=== PATIENT | female | born 1965 | race Caucasian/White ===

== ENCOUNTER 2017-02-05 18:07 | Emergency (ER) | payer OTHER ==
[~2017-02-05] VITALS: Ht 160 cm; Wt 70.5 kg
[~2017-02-05 18:07] MED LIST: NAPR250T PO; OXYC1TAB24 PO; SULF1TAB7 PO
[2017-02-05 18:13] VITALS: BP 123/78; PULSE 96; RESP 16; O2SAT 98
[2017-02-05 18:47] LABS: BASOPHILS % (AUTO) 0.3 % (0-3); EOSINOPHILS % (AUTO) 0.6 % (0-5); MONOCYTES % (AUTO) 7.2 % (4-12); Mean Corpuscular Hemoglobin 28.4 pg (27.0-35.0); Mean Corpuscular Volume 85.6 fL (81-100); NEUTROPHILS % (AUTO) 77.5 % (40-74); Platelet Count 263 bil/L (150-400)
[2017-02-06] MEDS ORDERED: SULF1TAB35 PO (15:17)
[2017-02-09] MEDS ORDERED: HYDR-4003 PO (15:53)
== END 2017-02-05 19:27 | disposition left against medical advice (07) ==
LOC: SED 18:07
DX: L02.414 Cutaneous abscess of left upper limb (principal); Z53.29 Procedure and treatment not carried out because of patient's decision for other reasons

== ENCOUNTER 2017-02-06 13:26 | Emergency (ER) | payer OTHER ==
[~2017-02-06] VITALS: Ht 160 cm; Wt 70.4 kg
[2017-02-06 13:27] VITALS: BP 137/76; PULSE 88; RESP 16; O2SAT 96
--- NOTE | 2017-02-06 13:39 | ED.REPORT ---
HPI-General Illness Date of Service Feb 06, 2017 ED Provider: Gustavo Santa DO The patient is a 51 year old female with a history of IV drug use and multiple abscesses who presents to the ED with a right shoulder abscess onset 2 days ago. Pt last used heroine 3 days ago and was clean for a month prior to this episode. Nursing Notes Stated Complaint: RIGHT SHOULDER ABSCESS Chief Complaint: Skin Rash/Abscess Nursing Notes Reviewed: Yes Allergies: Coded Allergies: No Known Allergies (Verified , 02/05/17) Scheduled Sulfamethoxazole/Trimeth 800-160 mg (Bactrim DS) 1 Each Tablet 1 TABLET PO BID Sulfamethoxazole/Trimeth 800-160 mg (Bactrim DS 800-160 mg) 1 Each Tablet 1 TABLET PO BID Scheduled PRN Naproxen (Naproxen) 250 Mg Tablet 250 MG PO BID PRN PRN For Pain oxyCODONE-Acetaminophen 5-325 mg (oxyCODONE-Acetaminophen 5-325 mg) 1 Each Tablet 1 TAB PO Q4H PRN PRN For Pain General Time Seen by MD: 13:36 Chief Complaint Other (abscess) Hx Obtained From: Patient Arrived By: Walk-in Sudden in Onset?: Yes Onset Occurred: 2 days ago Context of Onset: Other (IV drug use) Symptom Duration: Since onset Location: : Shoulder right Quality: Painful Severity: Current: Moderate Associated with: Reports: Fever Pertinent Negative: Pt denies other symptoms Recent Healthcare: No recent doctor visit, No recent hospitalization Similar Sx Previous: Yes Past Medical History Past Medical History Notes: Pt seen in the ED 06/20/15 for abscess I&D, with recheck visit 06/22/15. Abscesses appeared to be healing well at her previous visit. Past Medical History Thyroid nodules Abscess I&D x2 06/20/15 Reports: Asthma Past Surgical History Knee surgery Reports: Reports: Tubal ligation Smoking History Current Every Day Smoker Social History Alcohol Use: Denies alcohol use Drug Use: IV drugs Occupation works at [employer], not at this time secondary to fire, lives with boyfriend Ambulatory Status Independent Review of Systems Full Review of Systems Constitutional: Reports: Chills, Fever GI: Denies: Diarrhea, Nausea, Vomiting Musculoskeletal: Reports: Extremity pain, Extremity swelling Skin: Reports Rash, Reports Swelling Neurologic: Denies: Numbness, Weakness Complete sys rev & neg: except as marked. Physical Exam Vital Signs Vital Signs Date Time Temp Pulse Resp B/P Pulse Ox O2 Delivery O2 Flow Rate FiO2 02/06/17 15:28 36.2 87 125/82 97 Room Air 02/06/17 15:00 105 16 164/110 98 Room Air 02/06/17 13:27 36.7 88 16 137/76 96 Room Air Initial VS: Reviewed General/Constitutional: Awake, Alert, Cooperative, Not toxic appearing Head / Eyes: Atraumatic, Normocephalic ENT: Atraumatic, Mucous membranes moist Upper Extremities Right Shoulder: Positive: Swelling present..., Tenderness present... Wrist / Hand: Atraumatic, Full range of motion, No deformity Lower Extremity / Pelvis / MS: Atraumatic, Full range of motion, No deformity Ankle / Foot: Atraumatic, Full range of motion, No deformity Abscess Notes: 7cm area of fluctuance on right shoulder Abscess #1 Location/Condition: Positive: Fluctuant, Location (right shoulder) Neurologic: Oriented X3, Speech NL Procedures Incision & Drainage Abscess Time: 14:38 Procedure Performed by: ED physician Consent / Setup / Site Prep: Consent from patient, Hand hygiene observed, Stand sterile technique, Standard surgical scrub, Sterile drapes applied Location of Abscess: 7cm by 7cm right shoulder Skin Preparation Agent: Hibiclens - Chlorhexidine Local Anesthesia: Lidocaine w epi 1% Incised Abscess with Scalpel: #11 Pus Drained: Large, Purulent discharge Irrigation: 200 cc Post-Procedure / Complications: Packing placed, Culture obtained, Gram stain ordered, Dressing applied, No complications, Condition improved, Tolerated procedure well, Patient stable Re-Eval/Medical Decision Med Decision/Clinical Course Focal cutaneous abscess, vital signs are stable patient does not appear septic. Will discharge on Bactrim. Time of Eval: 13:56 Re-Evaluation/Progress Note: Pt rechecked. Plan for incision and drainage. Time of Eval: 14:25 Re-Evaluation/Progress Note: Pt rechecked. Gave pt Xylocaine 1% Time of Eval: 14:38 Re-Evaluation/Progress Note: Abscess incision and drainage performed. Pt tolerated procedure well. Counseled Regarding: Diagnosis, Lab results, Need for follow-up, When/why to return to ED Discharge & Departure Primary Impression: Abscess of right shoulder Disposition: Home Discharge Condition All VS Reviewed: Yes Condition: Stable Patient Instructions: Abscess (ED) Additional Instructions: Thank you for entrusting us with your care today. I am sending you home with the antibiotic Bactrim, take this as directed. Keep the wound clean and dry. Have the wound rechecked in 48 hrs at the Emergency Room. Use Tylenol and Ibuprofen as needed for pain. Follow up with your primary care physician in the next week. Return to the Emergency Department if you experience any new or worsening symptoms including any signs of infection such as fever, chills, warmth, redness, increased pain, and discharge. I hope you feel better soon! Referrals: Antonia Robin (PCP) Scribe Attestation Portion of this note were transcribed by Elvira Castañeda. I, Dr. Santa, personally performed the history, physical exam, and medical decision-making: I reviewed and confirmed the accuracy for the information in the transcribed note. Signed by: lisa Lilly, 02/06/17 1700 copies to: Antonia Robin Timothy S DO Feb 06, 2017 13:39 Elvira Castañeda Feb 06, 2017 13:55
[2017-02-06] MEDS ORDERED: Lidocaine-Epi-Tetracaine Solution 3 mL Syringe TOPICAL ONE (14:00)
[2017-02-06] MEDS ORDERED: Lidocaine 1%/Epi 1:100,000 30 mL MDV SUBQ ONE (14:00)
[2017-02-06] MEDS ORDERED: Ketamine 100 mg/mL 5 mL Inj IM ONE (14:10)
[2017-02-06 15:00] VITALS: BP 164/110; PULSE 105; RESP 16; O2SAT 98
[2017-02-06] MEDS ORDERED: Trimethoprim-Sulfa 160 mg-800 mg Tablet PO ONE (15:15)
[2017-02-06] MEDS ORDERED: SULF1TAB35 PO (15:17)
[2017-02-06 15:28] VITALS: BP 125/82; PULSE 87; O2SAT 97
[2017-02-09] MEDS ORDERED: HYDR-4003 PO (15:53)
== END 2017-02-06 15:30 | disposition home or self-care (01) ==
LOC: SED 13:26
DX: L02.413 Cutaneous abscess of right upper limb (principal); J45.909 Unspecified asthma, uncomplicated; F17.200 Nicotine dependence, unspecified, uncomplicated

== ENCOUNTER → 2017-02-09 | Day surgery (SDC) | payer OTHER ==
[2017-02-09] VITALS (8 sets, daily range): BP systolic 105–137; BP diastolic 65–94; PULSE 81–95; RESP 14–21; O2SAT 95–98
[~2017-02-09] VITALS: Ht 160 cm; Wt 70.5 kg
[~2017-02-09] MED LIST changes: +Atropine 0.4 mg/mL Inj IVPUSH PRN; +Bupivacaine-MPF 0.5% W/EPI 30 mL Inj INFILTRATE ONE; +Dexamethasone 4 mg/mL Inj IVPUSH PRN; +Dexamethasone 4 mg/mL Inj ONE; +EPHEDrine Sulfate 50 mg/mL Inj IVPUSH PRN; +HYDR-4003 PO; +HYDROcodone-APAP 5-325 mg Tablet PO PRN; +HYDROmorphone 1 mg/mL Inj ONE; +Labetalol 5 mg/mL 4 mL Inj IV PRN; +Lactated Ringer's 1,000 ML IV ONE; +Lactated Ringer's 1,000 ML IV SCH; +Lactated Ringer's 500 ML IV PRN; +MetoCLOpramide 5 mg/mL 2 mL Inj IVPUSH PRN; +Ondansetron 2 mg/mL 2 mL Inj IVPUSH PRN; +Ondansetron 2 mg/mL 2 mL Inj ONE; +Phenylephrine 10,000 mCg/mL Inj IVPUSH PRN; +Phenylephrine 10,000 mCg/mL Inj ONE; +Propofol 10,000 mCg/mL 20 mL Inj ONE; +SULF1TAB35 PO; +fentaNYL-PF 50 mCg/mL 2 mL Inj IVPUSH PRN; +fentaNYL-PF 50 mCg/mL 2 mL Inj ONE; +hydrALAZINE 20 mg/mL Inj IVPUSH PRN
--- NOTE | 2017-02-09 12:53 | ED.REPORT ---
HPI-Rash / Abscess Date of Service Feb 09, 2017 ED Provider: Caitlin Laboy History of Present Illness: 51-year-old female here for abscess. She has a abscess on her left hip that she first noticed 2 days ago. It has been growing since. Yesterday she was nauseous and could not get out of bed she felt ill. Today the nausea comes in waves. She was here 2 days ago for an abscess on her right shoulder. She has been taking Bactrim. It was I and D in the emergency room and the packing is still in place. There is purulent drainage coming from the wound. It is minimally better since the I&D. She last injected 6 days ago in her right shoulder and her left hip. No known fever. States she had to be sedated to do the I&D 2 days ago. last ate last night. Nursing Notes Stated Complaint: ABSCESS ON LT HIP Chief Complaint: Skin Rash/Abscess Nursing Notes Reviewed: Yes Allergies: Coded Allergies: No Known Allergies (Verified , 02/09/17) Scheduled Sulfamethoxazole/Trimeth 800-160 mg (Bactrim DS 800-160 mg) 1 Each Tablet 1 TABLET PO BID Scheduled PRN Hydrocodone-Acetaminophen 5-325 mg (Hydrocodone-Acetaminophen 5-325 mg) 1 Each Tablet 1-2 TABLET PO Q4H PRN PRN For Moderate Pain General Time Seen by MD: 12:45 Chief Complaint Abscess Hx Obtained From: Patient Arrived By: Walk-in Onset Occurred: 2 days ago Symptom Duration: 2 days Location: : Lower extremity Quality: Painful Severity: Current: Severe Severity: Maximum: Severe Associated with: Reports Myalgia, Reports Nausea Pertinent Negative: Pt denies other symptoms Recent Healthcare: Recent doctor visit Similar Sx Previous: Yes Past Medical History Past Medical History Notes: Pt seen in the ED 06/20/15 for abscess I&D, with recheck visit 06/22/15. Abscesses appeared to be healing well at her previous visit. IM drug use Past Medical History Thyroid nodules Abscess I&D x2 06/20/15 Reports: Asthma Past Surgical History Knee surgery Reports: Reports: Tubal ligation Smoking History Current Every Day Smoker Social History Alcohol Use: Denies alcohol use Drug Use: IV drugs Occupation works at [employer], not at this time secondary to fire, lives with boyfriend Ambulatory Status Independent Review of Systems Constitutional: Reports: Fatigue, Denies: Chills, Fever Respiratory: Denies: Dyspnea on exertion, Non-productive cough Cardiovascular: Denies: Chest pain GI: Reports: Nausea, Denies: Abdominal pain, Vomiting Musculoskeletal: Reports: Extremity pain, Extremity swelling Skin: Reports Swelling Complete sys rev & neg: except as marked. Physical Exam Initial Vital Signs Vital Signs (First) Date Time Temp Pulse Resp B/P Pulse Ox O2 Delivery O2 Flow Rate FiO2 02/09/17 12:27 36.8 95 18 132/94 98 Room Air Initial VS: Reviewed, Vital signs normal Head / Eyes: Atraumatic, Normocephalic, PERRL ENT: Mucous membranes moist, Conjunctiva normal, No scleral icterus Neck: Supple, Non-tender, Full range of motion Respiratory: Breath sounds normal, Clear to auscultation, No respiratory distress Cardiovascular: Regular rate & rhythm, Heart sounds normal, Intact distal pulses Abdomen / GI: Soft, Non-tender, No guarding, No rebound, No distention Neurologic: Alert, Oriented, Nonfocal Psychiatric: Mood/affect normal, Behavior normal, Normal thought content General/Constitutional: Awake, Alert, Well appearing Rash / Lesion Notes: Large abscess present on left hip/gluteus. Exquisitely tender. Large head about 3-4cm, erythema and induration [id number]. Abscesses present on right shoulder. Packing is in place with purulent drainage noted. She states swelling is gone down but erythema has not. Moderately tender. Rash / Lesion Location: Positive: Buttocks, Shoulder R, Thigh L Interpretation & Diagnostics Lab Results Interpretation Result Diagram: 02/09/17 1310 02/09/17 1310 Test 02/09/17 13:10 White Blood Count 12.2th/mm3 (3.8-10.1) Red Blood Count 4.45mil/mm3 (3.90-5.20) Hemoglobin 12.5g/dL (12.0-15.6) Hematocrit 38.0% (35.0-46.0) Mean Corpuscular Volume 85.4fL (81-100) Mean Corpuscular Hemoglobin 28.1pg (27.0-35.0) Mean Corpuscular Hemoglobin Concent 32.9% (32.0-37.0) Red Cell Distribution Width 13.6% (12.3-15.4) Platelet Count 322bil/L (150-400) Neutrophils (%) (Auto) 70.6% (40-74) Lymphocytes (%) (Auto) 17.3% (14-46) Monocytes (%) (Auto) 10.0% (4-12) Eosinophils (%) (Auto) 1.1% (0-5) Basophils (%) (Auto) 0.7% (0-3) Sodium Level 134mEq/L (134-144) Potassium Level 5.0mEq/L (3.5-5.2) Chloride Level 96mEq/L (97-108) Carbon Dioxide Level 24mmol/L (18-29) Blood Urea Nitrogen 13mg/dL (6-24) Creatinine 0.82mg/dL (0.57-1.00) Estimat Glomerular Filtration Rate 106mL/min (>59) Glucose Level 101mg/dL (60-99) Lactic Acid Level 0.8mmol/L (0.4-2.0) Calcium Level 9.5mg/dL (8.5-10.1) Total Bilirubin 0.2mg/dL (0.0-1.2) Aspartate Amino Transf (AST/SGOT) 14U/L (0-50) Alanine Aminotransferase (ALT/SGPT) 10U/L (0-32) Alkaline Phosphatase 73U/L (25-150) Total Protein 7.7g/dL (6.4-8.4) Albumin 3.7g/dL (3.4-5.0) Procedures Procedure Notes: Packing removed from right shoulder. Approximately 2 feet of packing removed. Re-Eval/Medical Decision Med Decision/Clinical Course wbc trending down compared to [address] Mercado consulted and examined, bedside ultrasound of wound. Advised surgical consult and drainage in the surgical setting. Dr. Seals surgeon notified and will come see patient in the emergency room. 1434 pt to OR with staff for procedure Discharge & Departure Shift Change Sign-Out Response to Therapy: Unchanged Impression: Primary Impression: Abscess of left hip Additional Impression: Abscess of right shoulder Disposition: ADMITTED TO HOSPITAL Discharge Condition All VS Reviewed: Yes Condition: Stable Referrals: Antonia Robin (PCP) EDSupervising Provider for APC: Parker Mercado MD copies to: Parker Mercado MD; Jean Marie King MD, Linnea K ARNP Feb 09, 2017 12:53
[2017-02-09 13:28] LABS: Mean Corpuscular Hemoglobin 28.1 pg (27.0-35.0); Mean Corpuscular Volume 85.4 fL (81-100); NEUTROPHILS % (AUTO) 70.6 % (40-74); Platelet Count 322 bil/L (150-400)
[2017-02-09 13:30] LABS: BASOPHILS % (AUTO) 0.7 % (0-3); EOSINOPHILS % (AUTO) 1.1 % (0-5)
--- NOTE | 2017-02-09 14:35 | CONS ---
[address] [address] CONSULTATION REPORT PATIENT: ROJELIO JONES : 1965 MR#: [id number] ADMIT: 02/09/2017 JOB ID: [id number] DATE OF SERVICE: 02/09/2017 CONSULTATION REQUESTED BY: GOLDEN Chen REASON FOR CONSULTATION: The patient seen for decision to operate. HISTORY OF PRESENT ILLNESS: A 51-year-old female, who is a known heroin injector, was in emergency department three days ago for a right shoulder abscess and four days ago for a left shoulder abscess, and presents today with a left hip abscess. She claims to have been clean until just recently but "had a bad day." She also smokes cigarettes. She was discharged on Bactrim 1 DS b.i.d. ALLERGIES: None. SOCIAL SITUATION: Lives with her boyfriend. HABITS: Half a pack of cigarettes a day and obviously injects heroin. REVIEW OF SYSTEMS: Otherwise negative. REVIEW OF SYSTEMS: Last ate yesterday. Otherwise negative. Also states she does have thyroid nodules. PHYSICAL EXAMINATION: BMI 27.5, temperature 36.8, brachial blood pressure 132/94, pulse 95, respiratory rate 18, O2 sat room air 98%. HEENT: PERRLA. No scleral icterus. Neck: Trachea midline. No appreciable masses. I did not appreciate thyroid nodules. Lungs: Clear. Cardiac exam: Regular rhythm. No murmurs or gallops appreciated. Lymph nodes: No cervical or scalene adenopathy. Extremities: She has erythema and induration and a transverse incision over her right deltoid. There may be undrained pus. Left hip: Obvious large abscess with large area of surrounding cellulitis. Skin otherwise clear. Neurologic exam: Appropriate affect. No obvious cranial nerve deficits. She moves all extremities. Gait not tested. IMPRESSION: 1. Heroin addiction. 2. Multiple abscesses. She has had three different abscesses in the last four days. I am concerned that the right shoulder abscess is inadequately drained. The left hip abscess obviously needs to be drained and I think it is best suited to be done in the operating room based on size. I discussed options with the patient. I have recommended proceeding with incision and drainage of left hip abscess and exploration of the right deltoid abscess. She agrees to proceed. Both sites were marked and informed consent obtained.
--- NOTE | 2017-02-09 14:54 | PCM.HPANE ---
Patient Data Date of Service: Feb 09, 2017 Surgeon Admitting Provider: Attending Provider:Jean Marie King MD Primary Care Physician:Antonia Robin Other Provider: Reason for Visit Left Hip Abscess Ht/WT & BMI Height (Feet): 5 Height (Inches): 3 Weight (Kilograms): 70.45 Body Mass Index Allergies Coded Allergies: No Known Allergies (Verified , 02/09/17) Past Anesthesia History Anesthesia History: Denies:: Anesthesia Reactions, Difficult Intubation, Malignant Hyperthermia Diabetes History Hx Diabetes?: No Medications Hypertension Medication: No Active Scripts Sulfamethoxazole/Trimeth 800-160 mg (Bactrim DS 800-160 mg)1 Each Tablet1 Tablet PO BID #20 TABLET Prov:Gustavo Santa DO 02/06/17 Discontinued Reported Medications Naproxen 250 Mg [id number] Mg PO BID PRN For Pain Ref 0 08/27/15 Discontinued Scripts Sulfamethoxazole/Trimeth 800-160 mg (Bactrim DS)1 Each Tablet1 Tablet PO BID # 20 TABLET Ref 0 Prov:Chapo Shepard DO 12/27/15 oxyCODONE-Acetaminophen 5-325 mg 1 Each Tablet1 Tab PO Q4H PRN For Pain #30 TABLET Ref 0 Prov:Ezequiel Martinez MD 08/27/15 History History of ENT Problems?: No HEENT History: Denies:: Abnormal Airway Denture Type: None Teeth Condition: Tooth Decay Missing Teeth Hx of Heart Problems?: No Cardiovascular History: Denies:: Congestive Heart Failure Hypertension Hx of Respiratory Problem?: No Respiratory History: Denies:: Asthma Tuberculosis Hx Neurologic Problems?: No Hx of GI Problems?: No Hx of Problems?: No Female Hx: Denies:: Currently Hx Musculoskeletal Problems?: No Hx of Psycho/Social Problems?: Yes Psycho Social History: Denies:: Suicide Attempt Other History/Comment IVDU Hx Surgeries?: Yes (LEFT KNEE, BILATERAL HANDS) History Blood Transfusions: Positive for:: Accept Blood Products? Denies:: Blood Transfusions Hx Diabetes: No Hx Alcohol Use: NoHx Substance Use: Yes ( HEROIN) Smoking Status: Current Every Day Smoker Have You Smoked inLast 12 mo: Yes Stop/Bang Treated for Sleep Apnea?: No Do You Have a CPAP Machine?: No S-Snoring: Do You Snore Loudly: No T-Tired: feel tired, fatigued: No O-Obsered: Observed not breath: No P-Blood Pressure: treated: No B- Body Mass Index > 35 kg/m2: No A- Age over 50: No N- Neck Large Circumference: No G- Gender Male: No ARGENIS Total Score: 0 ARGENIS Risk Assessment: Low Risk, <3 Yes Risk Assessment Category Category 1A: Patient has history of documented sleep apnea, and HAS NOT received any narcotic, sedative or anesthesia administration during this stay. Category 1B: Patient has history of documented sleep apnea, and HAS received any narcotic , sedative or anesthesia administration during this stay Category 2: Patient has SUSPECTED Obstructive Sleep Apnea, and HAS received any narcotic , sedative or anesthesia administration during this stay. Category 3: Patient has SUSPECTED Obstructive Sleep Apnea and HAS NOT received narcotic, sedative or anesthesia administration during this stay. Category 4: Outpatient in Procedural Areas with known sleep apnea or who screen positive for High Risk via the STOP/BANG questionnaire. Exam Exam Vital Signs Vital Signs Date Time Temp Pulse Resp B/P Pulse Ox O2 Delivery O2 Flow Rate FiO2 02/09/17 14:20 36.8 85 16 105/68 98 Room Air 02/09/17 12:27 36.8 95 18 132/94 98 Room Air General Appearance: Alert, Oriented X3, Cooperative, No Acute Distress HEENT/AIRWAY: MP 3, Neck Movement (normal), Mouth Opening (small) Lungs: Clear to Auscultation, Normal Air Movement Heart: Exam Unremarkable, Regular Rate/Rhythm, No Murmurs/Rubs/Gallops Meds/Labs/Diagnostics Labs Test 02/09/17 13:10 White Blood Count 12.2th/mm3 (3.8-10.1) Red Blood Count 4.45mil/mm3 (3.90-5.20) Hemoglobin 12.5g/dL (12.0-15.6) Hematocrit 38.0% (35.0-46.0) Mean Corpuscular Volume 85.4fL (81-100) Mean Corpuscular Hemoglobin 28.1pg (27.0-35.0) Mean Corpuscular Hemoglobin Concent 32.9% (32.0-37.0) Red Cell Distribution Width 13.6% (12.3-15.4) Platelet Count 322bil/L (150-400) Neutrophils (%) (Auto) 70.6% (40-74) Lymphocytes (%) (Auto) 17.3% (14-46) Monocytes (%) (Auto) 10.0% (4-12) Eosinophils (%) (Auto) 1.1% (0-5) Basophils (%) (Auto) 0.7% (0-3) Sodium Level 134mEq/L (134-144) Potassium Level 5.0mEq/L (3.5-5.2) Chloride Level 96mEq/L (97-108) Carbon Dioxide Level 24mmol/L (18-29) Blood Urea Nitrogen 13mg/dL (6-24) Creatinine 0.82mg/dL (0.57-1.00) Estimat Glomerular Filtration Rate 106mL/min (>59) Glucose Level 101mg/dL (60-99) Lactic Acid Level 0.8mmol/L (0.4-2.0) Calcium Level 9.5mg/dL (8.5-10.1) Total Bilirubin 0.2mg/dL (0.0-1.2) Aspartate Amino Transf (AST/SGOT) 14U/L (0-50) Alanine Aminotransferase (ALT/SGPT) 10U/L (0-32) Alkaline Phosphatase 73U/L (25-150) Total Protein 7.7g/dL (6.4-8.4) Albumin 3.7g/dL (3.4-5.0) Plan Impression Patient chart reviewed, patient interviewed and anesthestic plan with risks, benefits, and alternatives discussed, and informed consent obtained. NPO per Anesth. Guidelines: Yes ASA Physical Status: ASA2 Mod Systemic Disease Anesthetic Plan: GA Bene/Risks/Altern/Consents: Yes HP Complete Prior to Induction: Yes Miki Potts MD Feb 09, 2017 14:40
--- NOTE | 2017-02-09 15:41 | PCM.ANEP1 ---
Post Anesthesia PACU Phase 1 Assessment Date of Service: Feb 09, 2017 Vital Signs 36.9 118/77 82 19 96% RA Anesthetic Administered: GA Level of Alertness: Awake, talking GREENBERG's with Equal Strength: Yes Pain: Yes Nausea or Vomiting: No CV Function & Hydration Stable: Yes Airway Device: Oxygen Delivery: Room Air Lungs: Clear to Auscultation, Normal Air Movement PACU Phase 2 Assessment Complications: No Follow up Care: N/A Patient Instructions Provided: Yes Miki Potts MD Feb 09, 2017 15:41
[2017-02-09] MEDS: HYDROmorphone 1 mg/mL Inj IVPUSH PRN ×2 (15:56→16:07)
--- NOTE | 2017-02-09 15:58 | PCM.DISURG ---
Surgical Discharge Instruction Date of Service Feb 09, 2017 Dates of Hospitalization Date of Hospital Admission Feb 09, 2017 Providers Admitting Physician: Primary Care Physician: Antonia Robin Attending Physician: Jean Marie King MD Discharge Diagnosis Discharge Diagnosis Multiple abscesses Post Operative diagnosis Same Diet Discharge Diet: No restrictions Activity Discharge Activity-General: Try not to overdue, Balance rest and activity, No driving while taking narcotic Dressing and Incisional Care Dressing Care: Keep dressing clean, dry & intact, Remove outer dressing after 24 hrs (Remove packing as well.) Hygiene: May shower after (24. Remove dressings first.), DO NOT soak incision under water, NO bathtub, hot tub or whirlpool Follow Up Plan Mid-level Provider (F9): Myles Oropeza PA-C Follow-up appointment: Weeks (2) Call your provider for: Fever, Chills, Discharge @ incision, pus discharge Rosalino Robin PA-C Feb 09, 2017 15:58
--- NOTE | 2017-02-09 16:38 | OP ---
[address] [address] OPERATIVE REPORT PATIENT: ROJELIO JONES : 1965 MR#: [id number] ADMIT: 02/09/2017 JOB ID: [id number] DATE OF SURGERY: 02/09/2017 PREOPERATIVE DIAGNOSIS(ES): 1. Left hip abscess. 2. Right deltoid abscess. 3. Heroin addiction and injection. POSTOPERATIVE DIAGNOSIS(ES): OPERATION: 1. Incision and drainage, large left hip abscess, complicated. 2. Incision and drainage, right deltoid abscess, complicated. SURGEON: Jean Marie King MD. INDICATIONS: A 51-year-old heroin abuser, who had a left shoulder abscess incised and drained in the emergency department February 05, 2017. Then, on February 06, had a right shoulder abscess incised and drained in the emergency department, and then to presented today with a left hip abscess. It was large and felt best drained in the operating room. She claims to have not been using heroin for a year. On physical examination, she had a large left hip abscess, and on the right, still had significant cellulitis and some purulence coming out of her right deltoid abscess, and so after discussing options with the patient, it was elected to proceed with re-exploration of the right deltoid abscess and then incision and drainage of the left hip abscess. FINDINGS: There was some undrained pus in the right deltoid abscess which needed better drainage and I lengthened the incision. The left hip abscess had an approximate 7 x 5 x 5 cm abscess space. There was no evidence of necrotizing fasciitis in either site. The left hip abscess was cultured. PROCEDURE: At the beginning and end of the operation, the SCOAP checklist was completed. An LMA anesthetic was induced by Dr. Miki Potts. Using Betadine, the right deltoid abscess was prepped and it was explored with a Nanci clamp. There is some undrained pus that I drained and so I extended the incision superiorly. The wound was then irrigated, then packed with saline- moistened Kerlix. It was covered by 4x4's and tape. She was then repositioned and her left hip abscess prepped with Betadine. She was given local anesthesia with 0.5% plain bupivacaine and an oblique incision was made, but prior to doing so, the abscess was aspirated and the aspirate sent for culture and sensitivity and Gram stain. The abscess was completely drained. It was irrigated with saline. It was then packed with saline-moistened Kerlix covered by Kerlix and an ABD and then taped. ESTIMATED BLOOD LOSS: 10 cc. No apparent complications. The final sponge, needle and instrument counts were announced as correct, and she was returned to the recovery room in stable condition.
== END | disposition home or self-care (01) ==
LOC: SED 12:17 → SAS 14:16
PROVIDERS: ATTEND Surgery
DX: L02.413 Cutaneous abscess of right upper limb (principal); L02.416 Cutaneous abscess of left lower limb; F11.20 Opioid dependence, uncomplicated; J45.909 Unspecified asthma, uncomplicated; E04.2 Nontoxic multinodular goiter; F17.210 Nicotine dependence, cigarettes, uncomplicated
CPT/HCPCS: 10061; 36415; 80053; 83605; 85025; 87040; 87070; 87075; 87076; 87077; 87186; 87205; 99285; J0690; J1100; J1170; J1885; J2175; J2250; J2370; J2405; J3010; J7120

== ENCOUNTER 2017-03-04 19:05 | Emergency (ER) | payer OTHER ==
[~2017-03-04] VITALS: Ht 160 cm; Wt 70.5 kg
[~2017-03-04 19:05] MED LIST changes: -Atropine 0.4 mg/mL Inj IVPUSH PRN; -Bupivacaine-MPF 0.5% W/EPI 30 mL Inj INFILTRATE ONE; -Dexamethasone 4 mg/mL Inj IVPUSH PRN; -Dexamethasone 4 mg/mL Inj ONE; -EPHEDrine Sulfate 50 mg/mL Inj IVPUSH PRN; -HYDROcodone-APAP 5-325 mg Tablet PO PRN; -HYDROmorphone 1 mg/mL Inj ONE; -Labetalol 5 mg/mL 4 mL Inj IV PRN; -Lactated Ringer's 1,000 ML IV ONE; -Lactated Ringer's 1,000 ML IV SCH; -Lactated Ringer's 500 ML IV PRN; -MetoCLOpramide 5 mg/mL 2 mL Inj IVPUSH PRN; -NAPR250T PO; -OXYC1TAB24 PO; -Ondansetron 2 mg/mL 2 mL Inj IVPUSH PRN; -Ondansetron 2 mg/mL 2 mL Inj ONE; -Phenylephrine 10,000 mCg/mL Inj IVPUSH PRN; -Phenylephrine 10,000 mCg/mL Inj ONE; -Propofol 10,000 mCg/mL 20 mL Inj ONE; -SULF1TAB7 PO; -fentaNYL-PF 50 mCg/mL 2 mL Inj IVPUSH PRN; -fentaNYL-PF 50 mCg/mL 2 mL Inj ONE; -hydrALAZINE 20 mg/mL Inj IVPUSH PRN
[2017-03-04 19:15] VITALS: BP 131/87; PULSE 100; RESP 18; O2SAT 99
--- NOTE | 2017-03-04 21:13 | ED.REPORT ---
HPI-Rash / Abscess Date of Service Mar 04, 2017 ED Provider: Chris Umaña MD The pt is a 51 y/o female with a hx of IV heroin use and multiple abscesses who presents to the ED complaining of a painful abscess on the left upper arm, onset 2 days ago. The pain from her abscess radiates down to her elbow and up to the shoulder. She also reports a smaller abscess on the right buttock. She last used heroin 5 days ago. She is enrolled in a methadone program. Nursing Notes Stated Complaint: LEFT ARM ABSCESS Chief Complaint: Skin Rash/Abscess Nursing Notes Reviewed: Yes Allergies: Coded Allergies: No Known Allergies (Verified , 02/09/17) Scheduled Clindamycin (Clindamycin) 300 Mg Capsule 300 MG PO TID Sulfamethoxazole/Trimeth 800-160 mg (Bactrim DS 800-160 mg) 1 Each Tablet 1 TABLET PO BID Scheduled PRN Hydrocodone-Acetaminophen 5-325 mg (Hydrocodone-Acetaminophen 5-325 mg) 1 Each Tablet 1-2 TABLET PO Q4H PRN PRN For Moderate Pain General Time Seen by MD: 21:07 Chief Complaint Abscess Hx Obtained From: Patient Arrived By: Walk-in Onset Occurred: 2 days ago Symptom Duration: Since onset Location: : Other Quality: Painful Severity: Current: Severe Severity: Maximum: Severe Recent Healthcare: Recent doctor visit Similar Sx Previous: Yes Past Medical History Past Medical History Thyroid nodules Multiple abscess I&D Reports: Asthma Past Surgical History Knee surgery Reports: Reports: Tubal ligation Smoking History Current Every Day Smoker Social History Alcohol Use: Denies alcohol use Drug Use: IV drugs Occupation works at [email or web address], not at this time secondary to fire, lives with boyfriend Ambulatory Status Independent Review of Systems Reports: painful abscess on the left upper arm Reports: abscess on the right buttock Musculoskeletal: Reports: Joint pain (left shoulder and left elbow) Complete sys rev & neg: except as marked. Physical Exam Initial Vital Signs Vital Signs (First) Date Time Temp Pulse Resp B/P Pulse Ox O2 Delivery O2 Flow Rate FiO2 03/04/17 19:15 37.7 100 18 131/87 99 03/05/17 04:14 Room Air Initial VS: Reviewed, Vital signs normal Head / Eyes: Atraumatic, Normocephalic Neck: Supple, Non-tender, Full range of motion Respiratory: Breath sounds normal, Clear to auscultation, No respiratory distress Cardiovascular: Regular rate & rhythm, Heart sounds normal, Intact distal pulses Abdomen / GI: Soft, Non-tender, No guarding, No rebound, No distention Extremities: Vascular intact, Neuro intact, No swelling, No tenderness Neurologic: Alert, Oriented, Nonfocal Psychiatric: Mood/affect normal, Behavior normal, Normal thought content General/Constitutional: Awake, Alert, Cooperative Distress / Hydration: Positive: Distress mild Skin: Atraumatic, Color NL Indurates and erythematous area with obvious fluid collection. Upper Extremity / MS: Atraumatic, Full range of motion, No deformity, Neurologic intact, Vascular intact 8x12 cm abscess with surrounding erythema on the left upper arm. Interpretation & Diagnostics CT left upper extremity Left arm abscess centered in the subcutaneous fat at the level of the midhumerus laterally. Signed by Dr. Ilya Stein 03/04/17 23:47 Lab Results Interpretation Result Diagram: 03/04/17 2205 03/04/17 220 Test 03/04/17 22:05 03/04/17 22:45 03/04/17 23:42 White Blood Count 13.7th/mm3 (3.8-10.1) Red Blood Count 4.28mil/mm3 (3.90-5.20) Hemoglobin 12.1g/dL (12.0-15.6) Hematocrit 36.3% (35.0-46.0) Mean Corpuscular Volume 84.8fL (81-100) Mean Corpuscular Hemoglobin 28.3pg (27.0-35.0) Mean Corpuscular Hemoglobin Concent 33.3% (32.0-37.0) Red Cell Distribution Width 14.0% (12.3-15.4) Platelet Count 272bil/L (150-400) Neutrophils (%) (Auto) 78.3% (40-74) Lymphocytes (%) (Auto) 14.2% (14-46) Monocytes (%) (Auto) 6.4% (4-12) Eosinophils (%) (Auto) 0.7% (0-5) Basophils (%) (Auto) 0.2% (0-3) Sodium Level 133mEq/L (134-144) Potassium Level 4.3mEq/L (3.5-5.2) Chloride Level 93mEq/L (97-108) Carbon Dioxide Level 24mmol/L (18-29) Blood Urea Nitrogen 11mg/dL (6-24) Creatinine 0.70mg/dL (0.57-1.00) Estimat Glomerular Filtration Rate 127mL/min (>59) Glucose Level 112mg/dL (60-99) Lactic Acid Level 0.6mmol/L (0.4-2.0) Calcium Level 9.6mg/dL (8.5-10.1) Magnesium Level 2.0mg/dL (1.6-2.6) Total Bilirubin 0.2mg/dL (0.0-1.2) Aspartate Amino Transf (AST/SGOT) 15U/L (0-50) Alanine Aminotransferase (ALT/SGPT) 9U/L (0-32) Alkaline Phosphatase 79U/L (25-150) Troponin T < 0.010ug/L (0.0-0.011) Total Protein 8.1g/dL (6.4-8.4) Albumin 4.3g/dL (3.4-5.0) Hold Urine Received (Received) HIV (1&2) Antibody Rapid Negative (Negative) Lab Results Interpretation: Elevated white blood count X-Ray Chest Interpretation Chest Xray Interpretation: No acute findings. View: Portable, 1 view Interpretation / Wet Read by: Wet read ED physician Procedures Incision & Drainage Abscess Time: 02:35 Procedure Performed by: ED physician Consent / Setup / Site Prep: Informed consent provided, Consent from patient , Time-out performed, Hand hygiene observed, Stand sterile technique, Standard surgical scrub, Sterile drapes applied Location of Abscess: Left upper arm Skin Preparation Agent: Shurclens, Normal saline Local Anesthesia: Lidocaine w epi 1% Procedural Sedation/Analgesia: Sedation: Etomidate Incised Abscess with Scalpel: #11 Pus Drained: Large, Purulent discharge, Bloody Irrigation: Copious Post-Procedure / Complications: Packing placed, Dressing applied, No complications, Condition improved, Tolerated procedure well, Patient stable Proced Mod Sedation/Analgesia Time: 02:32 Procedure Performed by: ED physician Sedation Time: 10 - 15 min Consent / Setup: Informed consent provided, Consent from patient, Time-out performed, Hand hygiene observed, Stand sterile technique, Position supine Indication: Other (I&D) Preparation: air sampling and monitoring applied, Pulse oximeter applied, Constant attendance, IV access established, Eval last meal time, Supplemental oxygen, Procedure explained, Suction available, End tidal CO2 mon applied VS Prior to Procedure: All vital signs normal Mallampati: Class & Anatomy: 2 top tonsil/uvula/palate Airway Exam: Normal facial anatomy, Normal neck anatomy, Normal anatomy CVS/Resp Exam: Normal breath sounds Sedation: Sedation: Etomidate ASA Classification: 1 normal healthy patient Response During Procedure: Handled secretions adeq, Maintained airway well, Oxygenation stable, Sedation appropriate, Vital signs stable Complications During/After: None (however, etomidate did not appear to be fully effective and she had a prominent tremor/myoclonic jerking during the sedation.) Reversal: None required Mental Status After Procedure: Alert, Oriented X3, Response to verbal stim, Response to painful stim, Not responsive, Normal per age, At patient's baseline Post-Procedure: Alert prior to discharge, Pt rtn pre-proc baseline, Vital signs normal Attestation: I performed procedure, I performed sedation Re-Eval/Medical Decision Med Decision/Clinical Course 51-year-old female who is on a methadone program but continues to inject heroin intramuscularly. She has a small tender area on her buttocks and a large abscess in her left upper arm. CT scan showed no evidence of deep extension, necrotizing fasciitis, or osteomyelitis. Her white blood count was elevated but she showed no evidence of overt sepsis. She had very mild tachycardia but no hypotension. She was hydrated and given IV antibiotics. The abscess was drained under etomidate sedation. She did not tolerate the sedation very well, it was not fully effective and she had considerable tremor/myoclonic jerking with it. I would recommend the future using a different sedating agent. She is being discharged home with clindamycin. She will follow up in 24 hours for wound recheck. Source of Hx: Old records Re-Evaluation/Progress : Time of Eval: 02:16 Re-Evaluation/Progress Note: Rechecked pt. Discussed lab results, imaging results, diagnosis and plan to discharge after I&D. Pt understands and agrees with the plan. F/U instruction and RTER warning given. All questions addressed. Counseled Regarding: Diagnosis, Need for follow-up, When/why to return to ED Discharge & Departure Impression: Primary Impression: Abscess of right upper extremity Disposition: Home Discharge Condition All VS Reviewed: Yes Condition: Stable Patient Instructions: Abscess Incision and Drainage (DC) Additional Instructions: Return to the emergency room this early Wednesday morning for recheck and repack. Clindamycin 300 mg 4 times a day for 10 days. Warm compresses. Referrals: Antonia Robin (PCP) Scribe Attestation Portions of this note were transcribed by Darby Salamanca. I,, personally performed the history,physical exam and medical decision-making;I reviewed and confirmed the accuracy of the information in the transcribed note. Signed by Sohail Barron. 03/04/17 copies to: Antonia Robin Howard L MD Mar 04, 2017 21:13 Darby Salamanca Mar 04, 2017 21:20
[2017-03-04] MEDS ORDERED: 0.9% Sodium Chloride 1,000 ML IV ONE (21:21)
[2017-03-04] MEDS ORDERED: Meropenem Inj 1,000 MG in 0.9% Sodium Chloride 100 ML IV ONE (21:25)
[2017-03-04] MEDS ORDERED: Clindamycin Inj 900 MG in IV Premix 1 EACH IV ONE (21:25)
[2017-03-04] MEDS ORDERED: Vancomycin Dose per Pharmacist XX ONE (21:25)
[2017-03-04] MEDS ORDERED: Vancomycin Inj 1,250 MG in 0.9% Sodium Chloride 250 ML IV ONE (21:45)
[2017-03-04 22:16] LABS: BASOPHILS % (AUTO) 0.2 % (0-3); EOSINOPHILS % (AUTO) 0.7 % (0-5); MONOCYTES % (AUTO) 6.4 % (4-12); Mean Corpuscular Hemoglobin 28.3 pg (27.0-35.0); Mean Corpuscular Volume 84.8 fL (81-100); NEUTROPHILS % (AUTO) 78.3 % (40-74); Platelet Count 272 bil/L (150-400)
[2017-03-04 22:41] LABS: TROPONIN T < 0.010 ug/L (0.0-0.011)
[2017-03-04] MEDS ORDERED: Ondansetron 2 mg/mL 2 mL Inj IVPUSH PRN (22:45)
[2017-03-04] MEDS: HYDROmorphone 1 mg/mL Inj IVPUSH PRN (23:00)
[2017-03-05] MEDS: HYDROmorphone 1 mg/mL Inj IVPUSH PRN (01:53)
[2017-03-05] MEDS ORDERED: HYDROmorphone 1 mg/mL Inj IVPUSH PRN (02:45)
[2017-03-05] MEDS ORDERED: CLIN-78 PO (03:33)
[2017-03-05 04:14] VITALS: BP 127/72; PULSE 100; RESP 14; O2SAT 98
--- NOTE | 2017-03-05 07:35 | DRSVH ---
PROCEDURE: X-RAY CHEST ONE VIEW, PORTABLE ([id number]) INDICATIONS: Abscess, septic TECHNIQUE: One view of the chest was acquired. COMPARISON: [facility], , CHEST 1VW (PORTABLE), 07/11/2007, 12:01. FINDINGS: Surgical changes and devices: None. Lungs and pleura: No pleural effusions or pneumothorax. Lungs are clear. Mediastinum: Mediastinal contours appear normal. Heart size is normal. Bones and chest wall: No suspicious bony lesions. Overlying soft tissues appear unremarkable. IMPRESSION: No radiographic evidence of acute cardiopulmonary pathology. Dictated by: Bridger Charlton M.D. on 03/05/2017 at 7:32 Approved by: Bridger Charlton M.D. on 03/05/2017 at 7:33
--- NOTE | 2017-03-05 09:24 | DRSVH ---
PROCEDURE: CT UPPER EXTREMITY LT W CON INDICATIONS: 51 year-old woman with left arm pain, swelling and redness. Suspicious for abscess. TECHNIQUE: After the administration of intravenous contrast, 3 mm axial sections acquired of the left upper arm, with coronal and sagittal reformats. For radiation dose reduction, the following was used: automat ed exposure control, adjustment of mA and/or kV according to patient size. COMPARISON: None. FINDINGS: Image quality: Excellent. Bones: No fracture or dislocation. No bony erosion or periosteal direction. Soft tissues: There is a complex fluid collection with peripheral enhancement within the subcutaneous tissue of the lateral aspect of the mid left upper arm, consistent with an abscess. The abscess winnie ures 3.9 cm AP x 2.9 cm transverse x 7.6 cm longitudinal. There is skin thickening and inflammatory stranding over the collection consists with cellulitis. IMPRESSION: 1. A 3.9 x 2.9 x 7.6 cm subcutaneous abscess in the lateral aspect of the mid left upper arm. 2. Skin thickening in the lateral aspect of the left are prominent consistent with cellulitis. No significant discrepancy with the marine engineering professor radiology preliminary report. Dictated by: Iraida Rocha M.D. on 03/05/2017 at 9:15 Approved by: Iraida Rocha M.D. on 03/05/2017 at 9:22
== END 2017-03-05 03:50 | disposition home or self-care (01) ==
LOC: SED 19:05
DX: L02.414 Cutaneous abscess of left upper limb (principal); L02.31 Cutaneous abscess of buttock; J45.909 Unspecified asthma, uncomplicated; F17.200 Nicotine dependence, unspecified, uncomplicated; Z98.890 Other specified postprocedural states
CPT/HCPCS: 10061; 36415; 71010; 73201; 80053; 83605; 83735; 84484; 85025; 87040; 87340; 94770; 94799; 96365; 96366; 96367; 96375; 96376; 99152; 99285; G0432; G0433; G0472; J1170; J2185; J2405; J3370; J3490; J7030; J7050; Q9967

== ENCOUNTER 2017-03-07 05:52 | Emergency (ER) | payer OTHER ==
[~2017-03-07] VITALS: Ht 160 cm; Wt 70.5 kg
[~2017-03-07 05:52] MED LIST changes: +CLIN-78 PO
[2017-03-07 05:59] VITALS: BP 110/68; PULSE 92; RESP 18; O2SAT 98
--- NOTE | 2017-03-07 06:13 | ED.REPORT ---
HPI-Rash / Abscess Date of Service Mar 07, 2017 ED Provider: Zan Flores MD The pt is a 51 y/o female w/ a hx of IV drug use presenting to the ED complaining of an abscess on her R buttock. She was also seen here in the ED 3 days ago for an I+D of an abscess to her L arm which she would like to be repacked. The pt last had water to drink earlier this morning. Nursing Notes Stated Complaint: ABSCESS RT ARM/BUTT Chief Complaint: R buttock abscess Nursing Notes Reviewed: Yes ([employer] not reconciled) Allergies: Coded Allergies: No Known Allergies (Verified , 02/09/17) Scheduled Clindamycin (Clindamycin) 300 Mg Capsule 300 MG PO TID Lactobacillus Acidophilus (Probiotic) 1 Each Capsule 1 EACH PO DAILY Sulfamethoxazole/Trimeth 800-160 mg (Bactrim DS 800-160 mg) 1 Each Tablet 1 TABLET PO BID Scheduled PRN Hydrocodone-Acetaminophen 5-325 mg (Hydrocodone-Acetaminophen 5-325 mg) 1 Each Tablet 1-2 TABLET PO Q4H PRN PRN For Moderate Pain General Time Seen by MD: 06:07 Chief Complaint Abscess (R buttock ) Hx Obtained From: Patient Arrived By: Walk-in Symptom Duration: Since onset Recent Healthcare: No recent hospitalization, Recent doctor visit Similar Sx Previous: Yes Past Medical History Past Medical History Thyroid nodules Multiple abscess I&D Reports: Asthma Past Surgical History Knee surgery Reports: Reports: Tubal ligation Smoking History Current Every Day Smoker Social History Alcohol Use: Denies alcohol use Drug Use: IV drugs Occupation works at [employer], not at this time secondary to fire, lives with boyfriend Ambulatory Status Independent Review of Systems R buttock abscess; L arm abscess that was drained 3 days ago; Complete sys rev & neg: except as marked. Physical Exam Initial Vital Signs Vital Signs (First) Date Time Temp Pulse Resp B/P Pulse Ox O2 Delivery O2 Flow Rate FiO2 03/07/17 05:59 36.7 92 18 110/68 98 Room Air Initial VS: Reviewed, Vital signs normal Head / Eyes: Atraumatic, Normocephalic, PERRL ENT: Mucous membranes moist, Conjunctiva normal, No scleral icterus Neck: Supple, Non-tender, Full range of motion Respiratory: Breath sounds normal, Clear to auscultation, No respiratory distress Cardiovascular: Regular rate & rhythm, Heart sounds normal, Intact distal pulses Neurologic: Alert, Oriented, Nonfocal Psychiatric: Mood/affect normal, Behavior normal, Normal thought content General/Constitutional: Awake, Alert Behavior: Positive: Anxious Moderate pain Skin: Warm, Dry Large, roughly 10 cm, abscess on the R buttock w/ surrounding cellulitis Interpretation & Diagnostics Interpretation & Diagnostics: Blood Cultures no growth to date Proced Mod Sedation/Analgesia Post-Procedure: Vital signs normal Procedures Incision & Drainage Abscess I & D Abscess: Dressing change and packing removal of the previously drained left arm abscess was also performed while the patient was sedated Procedure Performed by: ED physician Consent / Setup / Site Prep: Informed consent provided Location of Abscess: Right buttock Skin Preparation Agent: Hibiclens - Chlorhexidine Local Anesthesia: Bupivacaine 0.5% Procedural Sedation/Analgesia: Sedation: Ketamine (IM) Pus Drained: Large, Purulent discharge Irrigation: Yes, Copious, 250 cc Post-Procedure / Complications: Packing placed, Drain placed, Dressing applied, No complications, Condition improved, Tolerated procedure well, Patient stable Proced Mod Sedation/Analgesia Time: 07:00 Procedure Performed by: ED physician Consent / Setup: Informed consent provided, Consent from patient, Time-out performed, Hand hygiene observed, Stand sterile technique, Head of bed at 30-60 deg Indication: Other (Abscess I&D) Preparation: Pulse oximeter applied, Constant attendance, Eval last meal time, Supplemental oxygen, Procedure explained, Suction available, End tidal CO2 mon applied VS Prior to Procedure: All vital signs normal Mallampati: Class & Anatomy: 2 top tonsil/uvula/palate Airway Exam: Normal facial anatomy CVS/Resp Exam: Normal breath sounds, Normal heart sounds Neuro Exam: Alert Sedation: Sedation: Other, Analgesia: Other ASA Classification: 2 mild systemic disease Response During Procedure: Handled secretions adeq, Maintained airway well, Oxygenation stable, Sedation appropriate, Vital signs stable Complications During/After: None Reversal: None required Mental Status After Procedure: At patient's baseline Post-Procedure: Alert prior to discharge Attestation: I performed procedure, I performed sedation Re-Eval/Medical Decision Med Decision/Clinical Course This is a 51-year-old female returns to the emergency department requesting an abscess edge of the right buttock. Patient intramuscular muscles heroin, has just seen and is status post drainage of an abscess to the left arm, and is on clindamycin. She had cellulitis of the buttock but not anything that was clearly minimal incision at the drainage at the time she was seen, but reports is now matured. She denies fevers or systemic symptoms. On exam she is an uncomfortable-appearing 51-year-old black female, but does not appear toxic or acutely ill. She does have a large abscess and surrounding cellulitis of the right buttock. She still has some residual cellulitis to the left arm where the previous incision was performed, but a normal upper chain fluctuance. Packing from that abscess and I&D was removed. I reviewed the last records indicate that etomidate was considered suboptimal for procedural sedation for her, so I elected to use ketamine. The patient received pretreatment with ondansetron, and I am dose of ketamine was given- with excellent sedation and analgesia. The right buttock abscess was anesthetized with additional bupivacaine with epinephrine, incised and drained, and a large amount of purulent material removed. The abscess cavity was irrigated, then packed, and bandage. As noted the left arm bandage was removed , the packing from the left arm removed, and the wound re-bandaged. A abscess culture was not obtained in the end. (It was planned, but the abscess was large enough that suction was used to collect the purulence and then filled with saline from the irrigation that was performed immediately thereafter prior to sending off the culture swab) Patient tolerated procedure well and recovered uneventfully. She is being discharged in improved condition. Routine wound care discussed. Patient advised to continue the clindamycin, I have also added a prescription for daily probiotic, and I recommended a recheck in 2-3 days-either at the primary care physician, or needed to return to the emergency department. Source of Hx: Old records Re-Evaluation/Progress #1: Time of Eval: 07:05 Re-Evaluation/Progress Note: Performed I+D to abscess of R buttock and repacked abscess of L arm Re-Evaluation/Progress #2: Time of Eval: 09:24 Re-Evaluation/Progress Note: Pt rechecked. Informed pt of plan for treatment. Pt understands and agrees with plan for treatment. F/U instructions and RTER warnings given. All questions addressed. Differential Diagnosis: Positive: Abscess (Right buttock), Cellulitis (buttock) , Skin abscess, Negative: Gangrene, Hand, foot, mouth disease, Henoch-Schonlein purpura, Herpes zoster, Kawasaki's disease Counseled Regarding: Diagnosis, Lab results, Need for follow-up, When/why to return to ED Discharge & Departure Impression: Primary Impression: Abscess of right buttock Additional Impressions: Encounter for recheck of abscess following incision and drainage Substance abuse Discharge Condition All VS Reviewed: Yes Condition: Stable Additional Instructions: 1. The abscess on the right buttock was drained today. I did place some packing and you will need to either see your doctor or return to the ED for a recheck and packing removal in ~2 days. 2. I removed the packing and redressed the left arm abscess that was drained a few days ago. 3. Continue the antibiotic clindamycin 300mg four times a day 4. I do recommend taking a probiotic while on the antibiotic and for an additional 2 weeks after completing (it replaces the normal healthy bacteria of the intestine) 5. Return if new or worsening symptoms. Referrals: Antonia Robin (PCP) Scribe Attestation Portions of this note were transcribed by Sea Patel. Dr. Mark Aguirre personally performed the history, physical exam and medical decision-making; I reviewed and confirmed the accuracy of the information in the transcribed note. copies to: Antonia Robin Matthew F MD Mar 07, 2017 06:13 Sea Ptael Mar 07, 2017 06:56 Substance abuse Discharge Condition All VS Reviewed: Yes Condition: Stable Referrals: Antonia Robin (PCP) Scribe Attestation Portions of this note were transcribed by Sea Patel. Dr. Mark Aguirre personally performed the history, physical exam and medical decision-making; I reviewed and confirmed the accuracy of the information in the transcribed note. copies to: Antonia Robin Matthew F MD Mar 07, 2017 06:13 Sea Patel Mar 07, 2017 06:56
[2017-03-07] MEDS ORDERED: Ondansetron 8 mg ODT Tablet PO ONE (06:35)
[2017-03-07] MEDS ORDERED: Ketamine 100 mg/mL 5 mL Inj IM ONE (06:35)
[2017-03-07] MEDS ORDERED: LACT1CAP65 PO (07:24)
[2017-03-07 08:45] VITALS: BP 112/65; PULSE 88; RESP 19; O2SAT 94
== END 2017-03-07 08:51 | disposition home or self-care (01) ==
LOC: SED 05:52
DX: L02.31 Cutaneous abscess of buttock (principal); F19.10 Other psychoactive substance abuse, uncomplicated; F17.200 Nicotine dependence, unspecified, uncomplicated

== ENCOUNTER 2017-03-17 07:15 | Emergency (ER) | payer OTHER ==
[~2017-03-17 07:15] MED LIST changes: +LACT1CAP65 PO
[2017-03-17 07:24] VITALS: BP 122/88; PULSE 80; RESP 16; O2SAT 99
== END 2017-03-17 07:50 | disposition left against medical advice (07) ==
LOC: SED 07:15
DX: S49.92XA Unspecified injury of left shoulder and upper arm, initial encounter (principal); Z53.21 Procedure and treatment not carried out due to patient leaving prior to being seen by health care provider